=== PATIENT | male | born 1945 | race Caucasian/White ===

== ENCOUNTER → 2022-06-15 | Outpatient (CLI) | payer MEDICARE, OTHER ==
[2022-06-15 13:18] LABS: CLARITY,URINE CLOUDY; COLOR,URINE BROWN; GLUCOSE, URINE (UA) NEGATIVE (NEGATIVE); KETONES,URINE NEGATIVE (NEGATIVE); LEUKOCYTE ESTERASE ,URINE NEGATIVE (NEGATIVE); NITRITE,URINE NEGATIVE (NEGATIVE); PH,URINE 6.5 (5-9); PROTEIN,URINE 1+ (NEGATIVE)
[2022-06-15 14:25] LABS: BILIRUBIN,URINE 1+ (NEGATIVE); WBC,URINE >100 /HPF
[2022-06-15 14:26] LABS: SQUAMOUS EPITHELIAL CELL,UR 0-2 /HPF
[2022-06-15 14:27] LABS: AMORPHOUS SEDIMENT,UR FEW AMOR URATES /LPF; CALCIUM OXALATE CRYSTALS,UR MODERATE /LPF
[2022-06-15 14:28] LABS: BACTERIA,URINE FEW /HPF; GRANULAR CASTS,URINE 0-2 /LPF
== END ==
PROVIDERS: ATTEND Pediatrics
DX: M62.81 Muscle weakness (generalized) (principal)
CPT/HCPCS: 81000; 87088

== ENCOUNTER 2022-12-28 15:11 | Emergency (ER) | payer MEDICARE, OTHER ==
--- NOTE | 2022-12-28 15:14 | ED Respiratory ---
General Chief Complaint: Cough/Cold/Flu Symptoms Stated Complaint: FEVER, FATIGUED, CONGESTION, COUGH History of Present Illness Date Seen by Provider: Dec 28, 2022 Time Seen by Provider: 15:14 Initial Comments 77-year-old male with PMH of dementia/Parkinson's disease/HTN/influenza in October 2022/intro trochanteric fracture of right femur in May 2022, is brought from the alf with complaints of lethargy, sleeping for the past 2 days, decreased appetite and decreased oral intake, cough with sputum production, fever for the past 2 days. [facility] reports that there are no known COVID or flu positive patients at this time. Patient is able to state his name but he is not able to contribute to any history. [facility] staff is present in the room with the patient and his contributing to the history. Staff denies vomiting, diarrhea, abdominal pain, chest pain, shortness of breath. Allergies and Home Medications Allergies Coded Allergies: morphine (Verified Allergy, Unknown, 12/28/22) Patient Home Medication List Home Medication List Reviewed: Yes Review of Systems Review of Systems Constitutional: see HPI, fever, malaise EENTM: see HPI Respiratory: cough, phlegm Cardiovascular: no symptoms reported Gastrointestinal: no symptoms reported Genitourinary: no symptoms reported Musculoskeletal: no symptoms reported Skin: no symptoms reported Psychiatric/Neurological: No Symptoms Reported Hematologic/Lymphatic: No Symptoms Reported Immunological/Allergic: no symptoms reported Physical Exam Capillary Refill : Height: '" Weight: lbs. oz. kg; BMI Method: General Appearance: WD/WN, no apparent distress, thin, other (Lethargic and tired appearing) HEENT: PERRL/EOMI, normal ENT inspection Neck: non-tender, full range of motion, supple, normal inspection Respiratory: chest non-tender, lungs clear, normal breath sounds, no respiratory distress Cardiovascular: normal peripheral pulses, regular rate, rhythm, no edema Gastrointestinal: normal bowel sounds, non tender, soft Extremities: normal range of motion Neurologic/Psychiatric: no motor/sensory deficits, alert, other (Patient has dementia) Skin: pallor Lymphatic: no adenopathy Focused Exam Lactate Level 12/28/22 15:20: Lactic Acid Level 1.37 Lactic Acid Level Laboratory Tests Test 12/28/22 15:20 Lactic Acid Level 1.37 MMOL/L (0.50-2.00) Progress/Results/Core Measures Suspected Sepsis SIRS Temperature: Pulse: Respiratory Rate: Laboratory Tests 12/28/22 15:20: White Blood Count 5.2 Blood Pressure / Mean: 12/28/22 15:20: Lactic Acid Level 1.37 Laboratory Tests 12/28/22 15:20: Creatinine 0.90, INR Comment 1.1, Platelet Count 119L, Total Bilirubin 0.8 Results/Orders Lab Results Laboratory Tests Test 12/28/22 15:20 Range/Units White Blood Count 5.2 4.3-11.0 10^3/uL Red Blood Count 3.46 L 4.30-5.52 10^6/uL Hemoglobin 9.1 L 13.3-17.7 g/dL Hematocrit 29 L 40-54 % Mean Corpuscular Volume 84 80-99 fL Mean Corpuscular Hemoglobin 26 25-34 pg Mean Corpuscular Hemoglobin Concent 31 L 32-36 g/dL Red Cell Distribution Width 16.2 H 10.0-14.5 % Platelet Count 119 L 130-400 10^3/uL Mean Platelet Volume 10.0 9.0-12.2 fL Immature Granulocyte % (Auto) 0 % Neutrophils (%) (Auto) 72 42-75 % Lymphocytes (%) (Auto) 21 12-44 % Monocytes (%) (Auto) 7 0-12 % Eosinophils (%) (Auto) 1 0-10 % Basophils (%) (Auto) 0 0-10 % Neutrophils # (Auto) 3.7 1.8-7.8 10^3/uL Lymphocytes # (Auto) 1.1 1.0-4.0 10^3/uL Monocytes # (Auto) 0.3 0.0-1.0 10^3/uL Eosinophils # (Auto) 0.0 0.0-0.3 10^3/uL Basophils # (Auto) 0.0 0.0-0.1 10^3/uL Immature Granulocyte # (Auto) 0.0 0.0-0.1 10^3/uL Prothrombin Time 14.3 12.2-14.7 SEC INR Comment 1.1 0.8-1.4 Activated Partial Thromboplast Time 33 24-35 SEC D-Dimer 1.52 H 0.00-0.49 UG/ML Sodium Level 144 135-145 MMOL/L Potassium Level 3.1 L 3.6-5.0 MMOL/L Chloride Level 108 H 98-107 MMOL/L Carbon Dioxide Level 28 21-32 MMOL/L Anion Gap 8 5-14 MMOL/L Blood Urea Nitrogen 25 H 7-18 MG/DL Creatinine 0.90 0.60-1.30 MG/DL Estimat Glomerular Filtration Rate 87 BUN/Creatinine Ratio 28 Glucose Level 151 H 70-105 MG/DL Lactic Acid Level 1.37 0.50-2.00 MMOL/L Calcium Level 9.1 8.5-10.1 MG/DL Corrected Calcium 9.9 8.5-10.1 MG/DL Magnesium Level 2.1 1.6-2.4 MG/DL Total Bilirubin 0.8 0.1-1.0 MG/DL Aspartate Amino Transf (AST/SGOT) 17 5-34 U/L Alanine Aminotransferase (ALT/SGPT) 5 0-55 U/L Alkaline Phosphatase 72 40-136 U/L Troponin I < 0.30 <0.30 NG/ML Pro-B-Type Natriuretic Peptide 5655.0 H <450.0 PG/ML Total Protein 6.3 L 6.4-8.2 GM/DL Albumin 3.0 L 3.2-4.5 GM/DL Influenza Type A (RT-PCR) Not Detected Not Detecte Influenza Type B (RT-PCR) Not Detected Not Detecte SARS-CoV-2 RNA (RT-PCR) Not Detected Not Detecte My Orders Orders - LORAINE BOWMAN MD Cbc With Automated Diff (12/28/22 15:22) Comprehensive Metabolic Panel (12/28/22 15:22) Fibrin Degradation Products (12/28/22 15:22) Magnesium (12/28/22 15:22) Protime With Inr (12/28/22 15:22) Partial Thromboplastin Time (12/28/22 15:22) Ua Culture If Indicated (12/28/22 15:22) Blood Culture (12/28/22 15:22) Sputum Culture (12/28/22 15:22) Troponin I Fs (12/28/22 15:22) Lactic Acid Analyzer (12/28/22 15:22) Chest 1 View Ap/Pa Only (12/28/22 15:23) Covid 19 Inhouse Test (12/28/22 15:24) Influenza A And B By Pcr (12/28/22 15:24) Probnp Fs (12/28/22 16:00) Ct Angio Chest W (12/28/22 17:54) Furosemide Injection (Lasix Injection) (12/28/22 18:15) Iohexol Injection (Omnipaque 350 Mg/Ml 1 (12/28/22 18:15) Received Contrast (Hold Metformin- Contr (12/28/22 18:15) Ns (Ivpb) (Sodium Chloride 0.9% Ivpb Bag (12/28/22 18:15) Potassium Chloride (Tablet) (K Dur Table (12/28/22 19:45) Azithromycin Injection (Zithromax Inject (12/28/22 19:45) Medications Given in ED Current Medications Medications Dose Ordered Sig/Flory Route Start Time Stop Time Status Last Admin Dose Admin Furosemide 40 mg ONCE ONCE IVP 12/28/22 18:15 12/28/22 18:16 DC 12/28/22 18:30 40 MG Iohexol 100 ml ONCE ONCE IV 12/28/22 18:15 12/28/22 18:16 DC 12/28/22 18:37 98 ML Sodium Chloride 100 ml ONCE ONCE IV 12/28/22 18:15 12/28/22 18:16 DC 12/28/22 18:37 100 ML Vital Signs/I&O Capillary Refill : Progress Note : Progress Note 1. PNEUMONIA: LETHARGY/ GENERALIZED WEAKNESS: - CXR: No evidence of pulmonary embolism or acute aortic disease. There is a small right effusion with bilateral infiltrates, most consolidated in the left lower lobe. - Labs: CBC/ CMP: normal WBC - Blood cultures sent - Lactic acid normal - UA: Unable to get urine - COVID test/ Rapid Flu test: negative - Azithro 500mg iv STAT - Prescription for 2 more days of Azithro given -The patient was seen in the ED, and treated appropriately to presentation at a specific point in time. Patient is informed that there is a possibility that disease and illness can evolve and change in acuity rapidly or slowly after patient is discharged from the ER. Precautionary advice given to the patient for immediate return to ER if symptoms worsen or do not resolve, and to seek emergency care sooner rather than later. Pt also advised on the importance of PCP follow up and compliance with management and follow up plan with PCP and/or specialist, as this is part of the management plan. Pt verbally expressed understanding. 2. CHF vs FLASH PULMONARY EDEMA: - CXR: see report - BNP is 5,655 - Lasix 40mg iv STAT - Prescription for Lasix 40mg daily for 5 days - Pt will need to follow up with PCP and cardiology within the next 3 to 5 days to asses whether he should be continued on Lasix, and will also need an ECHO and cardiac work up to rule our CHF 3. MILD HYPOKALEMIA: - s. K is 3.1 - Oral potassium 40mEq given in ER - F/u with PCP for repeat labs in 3 days Diagnostic Imaging Diagonstic Imaging: Xray, CT Plain Films/CT/US/NM/MRI: chest Comments [facility] [place], [place] NAME: TAYO STAPLETON [facility] REC#: [id number] PT STATUS: REG ER : 1945 PHYSICIAN: LORAINE BOWMAN MD ADMIT DATE: 12/28/22/ER FS Draft Date of Exam:12/28/22 CT ANGIO CHEST W PROCEDURE: CT angiography of the chest with contrast. TECHNIQUE: Multiple contiguous axial images were obtained through the chest after uneventful bolus administration of intravenous contrast. 3D reconstructed CTA MIP acquisitions were also performed. Auto Exposure Controls were utilized during the CT exam to meet ALARA standards for radiation dose reduction. INDICATION: Elevated D-dimer. No prior studies are available for comparison. Evaluation of the pulmonary arterial system is without thromboembolism. No definite filling defects are seen within central, lobar, or segmental branches. Thoracic aorta is normal in caliber. There is no dissection. There is no pericardial fluid. There is a small right and trace left pleural effusion. Parenchymal evaluation does show centrilobular emphysematous changes in both lungs. There are some interstitial infiltrates in the left upper lobe and bilateral lower lobes. There is an area of significant consolidation in the medial left lower lobe consistent with pneumonia. There appear to be some prominent lymph nodes in the marilyn bilaterally as well as the subcarinal region, indeterminate. Upper abdomen is unremarkable. IMPRESSION: 1. No evidence of pulmonary embolism or acute aortic disease. There is a small right effusion with bilateral infiltrates, most consolidated in the left lower lobe. Dictated on workstation # [id number] Dict: 12/28/22 1856 Trans: 12/28/22 1904 [id number] Interpreted by: MANAV RIVAS MD Electronically signed by: [facility] [place] [place] NAME: TAYO STAPLETON [facility] REC#: [id number] PT STATUS: REG ER : 1945 PHYSICIAN: LORAINE BOWMAN MD ADMIT DATE: 12/28/22/ER FS Draft Date of Exam:12/28/22 CHEST 1 VIEW AP/PA ONLY CHEST 1 VIEW AP/PA ONLY INDICATION: Fever and fatigue. COMPARISON: None available. FINDINGS: Bilateral perihilar ill-defined pulmonary opacities are more confluent in the left lung base. Small bilateral pleural effusions are present. No pneumothorax. Cardiac silhouette is mildly enlarged. IMPRESSION: 1. Bilateral pulmonary opacities may be due to multifocal pneumonia versus pulmonary edema. 2. Small bilateral pleural effusions. Dictated on workstation # [id number] Dict: 12/28/22 1548 Trans: 12/28/22 1554 [id number] Interpreted by: JOSHUA PAVON MD Electronically signed by: Departure Impression Primary Impression: CAP (community acquired pneumonia) Additional Impressions: Elevated brain natriuretic peptide (BNP) level Elevated d-dimer Hypokalemia Disposition: XF SNF Condition: Improved Departure-Patient Inst. Referrals: DUNCAN JACKSON MD (PCP) Primary Care Physician Patient Instructions: Community-Acquired Pneumonia in Adults Add. Discharge Instructions: - Prescription for 2 more days of Azithro given, for total of 3 days, with first dose given in ER - Prescription for Lasix 40mg daily for 5 days - Pt will need to follow up with PCP and cardiology within the next 3 to 5 days to asses whether he should be continued on Lasix, and will also need an ECHO and cardiac work up to rule our CHF - F/u with PCP for repeat labs in 3 days All discharge instructions reviewed with patient and/or family. Voiced understanding. Scripts Furosemide (Lasix) 40 Mg Tablet 40 MG PO DAILY for 5 Days, #5 TAB Prov: LORAINE BOWMAN MD 12/28/22 Azithromycin (Azithromycin) 500 Mg Tablet 500 MG PO DAILY for 2 Days, #2 TAB Prov: LORAINE BOWMAN MD 12/28/22 LORAINE BOWMAN MD Dec 28, 2022 15:14
[2022-12-28 15:39] LABS: BASOPHILS % (AUTO) 0 % (0-10); EOSINOPHILS % (AUTO) 1 % (0-10); HEMATOCRIT 29 % (40-54); HEMOGLOBIN 9.1 g/dL (13.3-17.7); LYMPHOCYTES # (AUTO) 1.1 10^3/uL (1.0-4.0); LYMPHOCYTES % (AUTO) 21 % (12-44); MEAN CORPUSCULAR HEMOGLOBIN 26 pg (25-34); MEAN CORPUSCULAR HGB CONC 31 g/dL (32-36); MEAN CORPUSCULAR VOLUME 84 fL (80-99); MONOCYTES # (AUTO) 0.3 10^3/uL (0.0-1.0); MONOCYTES % (AUTO) 7 % (0-12); NEUTROPHILS # (AUTO) 3.7 10^3/uL (1.8-7.8); NEUTROPHILS % (AUTO) 72 % (42-75); PLATELET COUNT 119 10^3/uL (130-400); WHITE BLOOD COUNT 5.2 10^3/uL (4.3-11.0)
--- NOTE | 2022-12-28 15:55 | Diagnostic Imaging Report ---
CHEST 1 VIEW AP/PA ONLY INDICATION: Fever and fatigue. COMPARISON: None available. FINDINGS: Bilateral perihilar ill-defined pulmonary opacities are more confluent in the left lung base. Small bilateral pleural effusions are present. No pneumothorax. Cardiac silhouette is mildly enlarged. IMPRESSION: 1. Bilateral pulmonary opacities may be due to multifocal pneumonia versus pulmonary edema. 2. Small bilateral pleural effusions. Dictated by: Dictated on workstation # [id number]
[2022-12-28 16:09] LABS: PROTHROMBIN TIME PATIENT 14.3 SEC (12.2-14.7)
[2022-12-28 16:10] LABS: FIBRIN DEGRADATION PRODUCTS 1.52 UG/ML (0.00-0.49); INR 1.1 (0.8-1.4)
[2022-12-28 16:11] LABS: ALKALINE PHOSPHATASE 72 U/L (40-136); BILIRUBIN,TOTAL 0.8 MG/DL (0.1-1.0); BUN/CREATININE RATIO 28; CALCIUM 9.1 MG/DL (8.5-10.1); CARBON DIOXIDE 28 MMOL/L (21-32); CHLORIDE 108 MMOL/L (98-107); GFR ESTIMATED 87; GLUCOSE 151 MG/DL (70-105); MAGNESIUM 2.1 MG/DL (1.6-2.4); POTASSIUM 3.1 MMOL/L (3.6-5.0); SODIUM 144 MMOL/L (135-145)
[2022-12-28 16:12] LABS: TOTAL PROTEIN 6.3 GM/DL (6.4-8.2)
[2022-12-28 16:39] LABS: ALANINE AMINOTRANSFERASE 5 U/L (0-55)
[2022-12-28] MEDS ORDERED: IOHEXOL 350 MG/ML 100 ML (OMNIPAQUE 350) VIAL IV ONE (18:15)
[2022-12-28] MEDS ORDERED: FUROSEMIDE 40 MG/4 ML INJ (LASIX) IVP ONE (18:15)
[2022-12-28] MEDS ORDERED: NS 100 ML (IVPB) BAG IV ONE (18:15)
[2022-12-28] MEDS ORDERED: HOLD METFORMIN - RECEIVED CONTRAST 20 ML VIAL IV SCH (18:15)
--- NOTE | 2022-12-28 19:04 | Diagnostic Imaging Report ---
PROCEDURE: CT angiography of the chest with contrast. TECHNIQUE: Multiple contiguous axial images were obtained through the chest after uneventful bolus administration of intravenous contrast. 3D reconstructed CTA MIP acquisitions were also performed. Auto Exposure Controls were utilized during the CT exam to meet ALARA standards for radiation dose reduction. INDICATION: Elevated D-dimer. No prior studies are available for comparison. Evaluation of the pulmonary arterial system is without thromboembolism. No definite filling defects are seen within central, lobar, or segmental branches. Thoracic aorta is normal in caliber. There is no dissection. There is no pericardial fluid. There is a small right and trace left pleural effusion. Parenchymal evaluation does show centrilobular emphysematous changes in both lungs. There are some interstitial infiltrates in the left upper lobe and bilateral lower lobes. There is an area of significant consolidation in the medial left lower lobe consistent with pneumonia. There appear to be some prominent lymph nodes in the marilyn bilaterally as well as the subcarinal region, indeterminate. Upper abdomen is unremarkable. IMPRESSION: 1. No evidence of pulmonary embolism or acute aortic disease. There is a small right effusion with bilateral infiltrates, most consolidated in the left lower lobe. Dictated by: Dictated on workstation # [id number]
[2022-12-28] MEDS ORDERED: AZITHROMYCIN INJECTION 500 MG in NS (IVPB) 250 ML IV ONE (19:45)
[2022-12-28] MEDS ORDERED: KCL 20 MEQ TAB (K-DUR) PO ONE (19:45)
[2022-12-28] MEDS ORDERED: AZIT500T9 PO (19:52)
[2022-12-28] MEDS ORDERED: FURO-124 PO (19:52)
[2022-12-28 20:43] VITALS: BP 133/47
== END 2022-12-28 20:43 | disposition home or self-care (01) ==
LOC: EDUNIT# 15:11 → ER FS 15:13
DX: J18.9 Pneumonia, unspecified organism (principal); E87.6 Hypokalemia; R79.1 Abnormal coagulation profile; R79.89 Other specified abnormal findings of blood chemistry; Z20.822 Contact with and (suspected) exposure to COVID-19
CPT/HCPCS: 36415; 71045; 71275; 80053; 83605; 83735; 83880; 84484; 85025; 85379; 85610; 85730; 87040; 87636

== ENCOUNTER 2023-01-09 05:15 | Emergency (ER) | payer MEDICARE, OTHER ==
[~2023-01-09] VITALS: Ht 185 cm; Wt 81.6 kg
[~2023-01-09 05:15] MED LIST: AZIT500T9 PO; FURO-124 PO
--- NOTE | 2023-01-09 06:03 | ED General ---
General Stated Complaint: UNRESPONSIVE History of Present Illness Date Seen by Provider: Jan 09, 2023 Time Seen by Provider: 05:30 Initial Comments 77-year-old male with PMH of Parkinson's/dementia/displaced trochanteric fracture of right femur/HTN/muscle weakness, is sent here from [facility] via EMS with complaints of unresponsiveness and decreased oxygen saturation. Patient is DNR/DNI, and will be needing hospice/palliative care. Patient currently is nonverbal. Allergies and Home Medications Allergies Coded Allergies: morphine (Verified Allergy, Unknown, 12/28/22) Patient Home Medication List Home Medication List Reviewed: Yes Azithromycin (Azithromycin) 500 Mg Tablet, 500 MG PO DAILY Prescribed by: LORAINE BOWMAN MD on 12/28/221951 Furosemide (Lasix) 40 Mg Tablet, 40 MG PO DAILY Prescribed by: LORAINE BOWMAN MD on 12/28/221951 Review of Systems Review of Systems Constitutional: see HPI EENTM: no symptoms reported Respiratory: see HPI, other Cardiovascular: no symptoms reported Gastrointestinal: no symptoms reported Genitourinary: no symptoms reported Musculoskeletal: no symptoms reported Skin: no symptoms reported Psychiatric/Neurological: See HPI Hematologic/Lymphatic: No Symptoms Reported Immunological/Allergic: no symptoms reported Physical Exam Vital Signs Capillary Refill : Height, Weight, BMI Height: '" Weight: lbs. oz. kg; BMI Method: General Appearance: No Apparent Distress, Thin Respiratory: Respiratory Distress Cardiovascular: Regular Rate, Rhythm Gastrointestinal: Normal Bowel Sounds, Soft Neurologic/Psychiatric: Other (Unresponsive) Skin: Cool, Pallor Lymphatic: No Adenopathy Progress/Results/Core Measures Suspected Sepsis SIRS Temperature: Pulse: Respiratory Rate: Blood Pressure / Mean: Results/Orders Vital Signs/I&O Capillary Refill : Progress Note : Progress Note 1. UNRESPONSIVE, END OF LIFE CARE: - Ptis DNR/DNI, and needs hospice care. -Patient's PCP is Dr. Douglas. I have left a message for Dr. Douglas regarding the patient. -We will plan to transfer to [facility], accepted for hospice care by Dr Turk - Dilaudid 1mg iv and Ativam 1mg iv given in ER - Pt's aware of plan Departure Impression Primary Impression: End of life care Additional Impressions: Hospice care patient Unresponsive Disposition: [facility] HOSP Condition: Critical Transfer Transfer Reason: Exceeds level of care Time Spoke to Accepting Phy: 06:20 Transfer Progress Notes We will transfer to [facility] for hospice care. Accepted by Dr. Turk Transfer Facility: [facility] Method of Transfer: EMS Departure-Patient Inst. Referrals: DUNCAN DOUGLAS MD (PCP/Family) Primary Care Physician LORAINE BOWMAN MD Jan 09, 2023 06:03
[2023-01-09 06:18] LABS: BASOPHILS % (AUTO) 0 % (0-10); EOSINOPHILS % (AUTO) 3 % (0-10); HEMATOCRIT 28 % (40-54); HEMOGLOBIN 8.7 g/dL (13.3-17.7); LYMPHOCYTES # (AUTO) 0.3 10^3/uL (1.0-4.0); LYMPHOCYTES % (AUTO) 22 % (12-44); MEAN CORPUSCULAR HEMOGLOBIN 27 pg (25-34); MEAN CORPUSCULAR HGB CONC 31 g/dL (32-36); MEAN CORPUSCULAR VOLUME 85 fL (80-99); MONOCYTES # (AUTO) 0.1 10^3/uL (0.0-1.0); MONOCYTES % (AUTO) 6 % (0-12); NEUTROPHILS % (AUTO) 69 % (42-75); PLATELET COUNT 174 10^3/uL (130-400)
[2023-01-09 06:20] LABS: WHITE BLOOD COUNT 1.4 10^3/uL (4.3-11.0)
[2023-01-09] MEDS ORDERED: HYDROmorphone 2 MG/ML VIAL (DILAUDID) IV ONE (06:30)
[2023-01-09] MEDS ORDERED: LORazepam INJ 2 MG/ML (ATIVAN) VIAL IVP ONE (06:30)
[2023-01-09 06:40] LABS: ALANINE AMINOTRANSFERASE 6 U/L (0-55); ALBUMIN 2.6 GM/DL (3.2-4.5); ALKALINE PHOSPHATASE 53 U/L (40-136); BILIRUBIN,TOTAL 0.9 MG/DL (0.1-1.0); BUN/CREATININE RATIO 16; CALCIUM 8.7 MG/DL (8.5-10.1); CARBON DIOXIDE 22 MMOL/L (21-32); CHLORIDE 108 MMOL/L (98-107); CREATININE SERUM 1.46 MG/DL (0.60-1.30); GFR ESTIMATED 49; GLUCOSE 151 MG/DL (70-105); MAGNESIUM 1.6 MG/DL (1.6-2.4); POTASSIUM 2.7 MMOL/L (3.6-5.0); SODIUM 146 MMOL/L (135-145); TOTAL PROTEIN 5.2 GM/DL (6.4-8.2)
[2023-01-09 09:45] VITALS: BP 89/45
== END 2023-01-09 09:45 | disposition short-term general hospital (02) ==
LOC: EDUNIT# 05:52 → ER FS 05:56
DX: R40.4 Transient alteration of awareness (principal); Z51.5 Encounter for palliative care; Z88.5 Allergy status to narcotic agent; Z28.310 Unvaccinated for COVID-19
CPT/HCPCS: 36415; 80053; 83605; 83735; 83880; 84484; 85025; 87040; 87077; 87636